=== PATIENT | male | born 1970 | race Caucasian/White ===

== ENCOUNTER 2025-03-17 20:29 | Emergency (ER) | payer OTHER ==
[2025-03-17 21:43] LABS: #Basophils 0.05 10x3/uL (0.0-0.2); #Eosinophils 0.31 10x3/uL (0.0-0.7); #Monocytes 0.82 10x3/uL (0.11-0.59); #Neutrophils 5.31 10x3/uL (1.40-6.50); %Basophils 0.6 % (0.0-1.0); %Eosinophils 3.6 % (0.0-10.0); %Lymphocytes 24.7 % (21.0-51.0); %Monocytes 9.4 % (0.0-10.0); %Neutrophils 61.1 % (42.0-75.0); Hematocrit 44.4 % (42.0-52.0); Hemoglobin 15.5 g/dL (14.0-18.0); Mean Corpuscular Hemoglobin 33.0 pg (27.0-31.0); Mean Corpuscular Volume 94.7 fL (78.0-98.0); Platelet Count 268 10x3/uL (130-400); Red Blood Cell (RBC) Count 4.69 mill/uL (4.70-6.10); White Blood Cell (WBC) Count 8.68 10x3/uL (4.8-10.8)
[2025-03-17] MEDS ORDERED: Nitroglycerin 0.4 MG TAB 1 EACH ONE (21:46)
[2025-03-17 22:04] LABS: ALT (SGPT) 68 U/L (Less than 45); AST (SGOT) 38 U/L (11-34); Albumin 4.3 g/dL (3.1-4.5); Alkaline Phosphatase 86 U/L (40-110); Anion Gap 17 mmol/L (10-20); BUN (Urea Nitrogen) 14 mg/dL (8.4-25.7); Bilirubin, Total 0.3 mg/dL (0.3-1.2); Calc. Creatinine Clearance 0 mL/min (70-130); Calcium 10.0 mg/dL (7.8-10.44); Carbon Dioxide 22 mmol/L (22-29); Chloride 106 mmol/L (98-107); Globulin 3.3 g/dL (2.4-3.5); Glucose 105 mg/dL (70-105); Potassium 4.4 mmol/L (3.5-5.1); Sodium 141 mmol/L (136-145)
[2025-03-17 22:07] LABS: Troponin I 0.056 ng/mL (< 0.028)
[2025-03-18 00:23] LABS: Troponin I 0.072 ng/mL (< 0.028)
[2025-03-18] MEDS ORDERED: Heparin 5,000 UNITS/ML VIAL ONE (00:59)
[2025-03-18 01:20] LABS: INR-International Normal Ratio 1.0; Prothrombin Time 13.4 sec (12.0-14.7)
[2025-03-18 01:21] LABS: PTT 30.8 sec (22.9-36.1)
== END 2025-03-18 02:35 | disposition short-term general hospital (02) ==
LOC: ERS 20:29
DX: I21.4 Non-ST elevation (NSTEMI) myocardial infarction (principal); I10 Essential (primary) hypertension
CPT/HCPCS: 71045; 80053; 83880; 84484; 85025; 85610; 85730; 93005; 96365; 96376; J1644